=== PATIENT | male | born 1975 | race Native Hawaiian/Other Pacific Islander ===

== ENCOUNTER 2020-04-09 10:53 | Outpatient (CLI) | payer BC ==
[~2020-04-09 10:53] MED LIST: ADIPEX PO; AMBIEN5 MG PO; EC-NAPROSYN500 MG OR; FIBER OR; FLUT0.05 NAS; HYDR25TA60 PO; MECLIZINE25 MG OR; MOBIC7.5 M1 PO; MULTIVITAMI1 PO; PANT40TA PO; SINGULAIR10 MG PO
== END 2020-04-09 19:20 | disposition home or self-care (01) ==
LOC: MRI 10:53
DX: M54.12 Radiculopathy, cervical region (principal)

== ENCOUNTER 2020-06-26 08:32 | Outpatient (CLI) | payer BC, OTHER | END 2020-06-26 19:27 | disposition home or self-care (01) | LOC: MRI 08:32 | DX: M54.16 Radiculopathy, lumbar region (principal) ==

== ENCOUNTER 2021-04-30 10:59 | Outpatient (CLI) | payer BC, OTHER | END 2021-04-30 19:20 | disposition home or self-care (01) | LOC: RAD 10:59 | PROVIDERS: ATTEND Nurse Practitioner | DX: Z01.810 Encounter for preprocedural cardiovascular examination (principal) ==